=== PATIENT | female | born 1985 | race Two or more races ===

== ENCOUNTER 2023-04-11 09:46 | Emergency (ER) | payer OTHER ==
[~2023-04-11] VITALS: Ht 152.4 cm; Wt 68.0 kg
--- NOTE | 2023-04-11 10:10 | NUR ---
RECIVED PT 37 YRS FEMALE WALKING IN C/O PAIN ON RT HIP UNABLE TO AMBNLATE RESTING AT THIS TIME
--- NOTE | 2023-04-11 10:30 | NUR ---
SEEN BY DR. JHA
[2023-04-11] MEDS ORDERED: LIDO30AD10 TP (10:43)
[2023-04-11] MEDS ORDERED: CYCL5TAB PO (10:43)
[2023-04-11] MEDS ORDERED: KETOROLAC TROMETHAMINE INJ 30 MG/ML VIAL ONE (10:56)
[2023-04-11] MEDS ORDERED: LIDOCAINE 5% (PATCH) 1 EA PATCH TP ONE (10:56)
[2023-04-11] MEDS ORDERED: KETOROLAC TROMETHAMINE INJ 60 MG/2 ML VIAL IM ONE (11:00)
[2023-04-11] MEDS ORDERED: LIDOCAINE 5% (PATCH) 1 EA PATCH TP SCH (11:00)
--- NOTE | 2023-04-11 11:00 | NUR ---
TRETMENT GIVEN ORDER
--- NOTE | 2023-04-11 11:20 | NUR ---
Patient discharged to home in stable condition. Written and verbal after care instructions given. Patient verbalizes understanding of instruction.
[2023-04-11 11:22] VITALS: BP 113/80; TEMP 98.3; O2SAT 97
== END 2023-04-11 11:23 | disposition home or self-care (01) ==
LOC: ER 09:53
DX: M54.41 Lumbago with sciatica, right side (principal); Z60.2 Problems related to living alone
CPT/HCPCS: 99283; 96372; J1885